=== PATIENT | female | born 2000 | race Two or more races ===

== ENCOUNTER 2024-09-27 10:55 | Outpatient (REF) | payer OTHER, SELFPAY ==
[2024-09-27 12:06] LABS: MANUAL DIFF FLAG NO
[2024-09-27 12:08] LABS: Basophils Percent Auto 0.4 % (0-2); Eosinophils Absolute Auto 0.1 X10*3/uL (0.0-0.4); Eosinophils Percent Auto 0.9 % (0-4); Hematocrit 42.4 % (37.0-47.0); Hemoglobin 14.1 g/dl (12.0-16.0); Imm Gran Abs Auto 0.08 X10*3/uL (0.00-0.03); Imm Gran Pct Auto 0.7 % (0.0-0.4); Lymphocytes Absolute Auto 3.1 X10*3/uL (1.2-4.9); Lymphocytes Percent Auto 27.7 % (20-40); Mean Corpuscular HGB Conc 33.3 g/dl (31.0-35.0); Mean Corpuscular Hemoglobin 30.5 pg (27.0-33.0); Mean Corpuscular Volume 91.6 fL (80.0-98.0); Mean Platelet Volume 9.5 fL (9.4-12.3); Monocytes Absolute Auto 0.6 X10*3/uL (0.1-1.2); Monocytes Percent Auto 5.5 % (2-11); Neutrophils Absolute Auto 7.2 x10*3/uL (2.0-8.3); Neutrophils Percent Auto 64.8 % (45-73); Platelet Count 258 X10*3/uL (160-400); Red Blood Count 4.63 X10*6/uL (4.20-5.50); White Blood Count 11.1 X10*3/uL (4.8-10.8)
[2024-09-27 12:25] LABS: Alanine Aminotransferase 20 U/L (0-31); Albumin Level 4.4 g/dL (3.5-5.0); Alkaline Phosphatase 68 U/L (39-117); Anion Gap 8 (12-20); Aspartate Amino Transferase 18 U/L (5-31); Bilirubin Total 1.2 mg/dL (0.0-1.0); Blood Urea Nitrogen 15 mg/dL (9-16); Calcium 9.7 mg/dL (8.4-10.2); Carbon Dioxide 25 mmol/L (22-29); Chloride 106 mmol/L (96-108); Estimated Glomerular Filt Rate > 60; Glucose Random 121 mg/dL (60-115); Potassium 4.4 mmol/L (3.3-5.1); Sodium 135 mmol/L (135-145); Total Protein 8.4 g/dL (6.5-8.0)
--- OUTSIDE RECORDS SUMMARY | 2024-09-27 12:27 | XMS_ITS | Clinical Summary ---
Author Organization [facility] it Address [address] [place] [address] Care Team Providers Care Staff Forester Name Role Phone Vania Redding MD Primary Care Provider [phone] Surgical History Surgery Date Site/Laterality Comments WISDOM TOOTH EXTRACTION 2015 Bilateral PROCEDURE: HISTORICAL WISDOM TEETH EXTRACTION; COMMENT: bottom molars SECTION 10/12/2017 PROCEDURE: HISTORICAL DELIVERY; COMMENT: Breech OTHER SURGICAL HISTORY PROCEDURE: HISTORICAL D&C; COMMENT: for miscarriage Medical History Medical History Date Comments ADHD (attention deficit hype ractivity disorder) DX:ADHD (attention deficit h yperactivity disorder) Depression DX:Depression Hx of chlamydia infection DX:Hx of chlamydia infection; COMMENT: 04/07/17, 08/2019 Asthma DX:Asthma Nausea and vomiting DX:Nausea an d vomiting Diarrhea DX:Diarrhea Fatty liver DX:Fatty liver Liver lesion DX:Liver lesion Esophageal reflux DX:Esophageal reflux Postprandial epigastric pain DX: Postprandial epigastric pain Epigastric pain DX:Epigastric pa in Family History Medical History Relation Name Comments No Known Problems Brother 1 No Known Problems Brother 2 No Known Problems Brother 3 No Known Problems Father doesn't kn ow his Hx Heart attack Maternal Grandfather No Known Problems Maternal Grandmother Hypertension Mother No Known Problems Sister 1 No Known Problems Sister 2 No Known Problems Son Breast cancer Neg Hx Cervical cancer Neg Hx Colon cancer Neg Hx Ovarian cancer Neg Hx Pancreatic cancer Neg Hx Prostate cancer Neg Hx Uterine cancer Neg Hx Relation Name Status Comments Brother 1 Alive Brother 2 Alive Brother 3 Alive Father Alive Maternal Grandfather Maternal Grandmother Alive Mother Alive Paternal Grandfather unknown to her Alive Paternal Grandmother unknown to her Alive Sister 1 Alive Sister 2 Alive Son Alive 10/12/2017 Social History Tobacco Use Types Packs/Day Years Used Date Smoking Tobacco: Former Cigarettes Q uit: 09/06/2015 Smokeless Tobacco: Never Alcohol Use Standard Drinks/Week Comments Not Currently 0 (1 standard drink = 0.6 oz pur e alcohol) Sex and Gender Information Value Date Recorded Sex Assigned at Not on file Gender Identity Not on file Sexual Orientation Not on file Obstetrics History Last Filed Vital Signs Vital Sign Reading Time Taken Comments Blood Pressure 110/76 05/04/2024 8:21 AM EDT Pulse 72 05/04/2024 8:21 AM EDT Temperature - - Respiratory Rate - - Oxygen Saturation - - Inhaled Oxygen Concentration - - Weight 102 kg (224 lb) 05/04/2024 8:21 AM EDT Height 149.9 cm (4' 11 ) 05/04/2024 8:21 AM EDT Body Mass Index 45.24 05/04/2024 8:21 AM EDT Plan of Treatment Health Maintenance Due Date Last Done Comments Pneumococcal Vaccine: Pediatrics (0 to 5 Years) and At-Risk Patients (6 to 64 Years) (1 of 2 - PCV) 2005 HPV Vaccines (2 - 3-dose series) 01/18/2016 12/21/2015 Hepatitis A Vaccines (1 of 2 - Risk 2-dose series) 2018 Hepatitis B Vaccines (1 of 3 - 19+ 3-dose series) 2018 Depression Screening 08/05/2022 HIV Screening 08/05/2022 Hepatitis C Screening 08/05/2022 Social Influencers of Health Screening 08/05/2022 Cervical Cancer Screening: P ap Smear 02/12/2024 02/11/2021 COVID-19 Vaccine ( - 2023-2 5 season) 2024 Influenza Vaccine (#1) 2024 , 07/02/2017 Cholesterol Screening (Lipid Panel) 05/04/2029 05/04/2024 DTaP,Tdap,and Td Vaccines (3 - Td or Tdap) 05/28/2031 05/28/2021, 08/06/2017 Varicella Vaccines Aged Out 10/13/2017 No longer eligible based on patient's age to complete this topic HIB Vaccines Aged Out No longer eligi ble based on patient's age to complete this topic IPV Vaccines Aged Out No longer eligi ble based on patient's age to complete this topic MMR Vaccines Aged Out No longer eligi ble based on patient's age to complete this topic Meningococcal ACWY Vaccine Aged Out N o longer eligible based on patient's age to complete this topic RSV Immunization Patients Under 20 months Aged Out No longer eligible b ased on patient's age to complete this topic Procedures Procedure Name Priority Date/Time Associated Diagnosis Comments PAP SMEAR Routine 02/11/2021 from Last 3 Months or Most Recently Relevant to Health Maintenance Results * Pap smear (02/11/2021) 02/11/2021 Narrative HISTORICAL TESTING LAB RESULTING AGENCY - 02/18/2021 8:05 AM EDT [id number] THINPREP PAP, IMAGED: NEGATIVE FOR SQUAMOUS INTRAEPITHELIAL LESION AND MALIGNANCY . EVITA MAYER(ASCP) (CASE ELECTRONICALLY SIGNED 02 17 2021) ADEQUACY: SATISFACTORY ENDOCERVICAL/TRANSFORMATION ZONE COMPONENT ABSENT. SOURCE: THINPREP PAP, CERVICAL, IMAGED CLINICAL INFORMATION: THIN PREP PAP, , PAP HX NEG, NO LMP RECORDED [Z12.4, Z34.01] Kemi Landry DO LAB CYTOLOGY ORDERAB LES HISTORICAL TESTING LAB RESULTING AGENCY from Last 3 Months or Most Recently Relevant to Health Maintenance Care Teams Staff Forester Relationship Specialty Start Date End Date Vania Redding MD [address] [place] [address] Dr Mejia, DODIE [address] PCP - General 07/19/23
[2024-09-27 12:44] LABS: Thyroid Stimulating Hormone 1.89 uIU/mL (0.32-4.0)
== END 2024-09-27 10:56 | disposition home or self-care (01) ==
LOC: HO.10HDL 10:55
PROVIDERS: Visit Provider Internal Medicine
DX: Z00.00 Encounter for general adult medical examination without abnormal findings (principal); E66.01 Morbid (severe) obesity due to excess calories; I10 Essential (primary) hypertension; J45.909 Unspecified asthma, uncomplicated
CPT/HCPCS: 36415; 80053; 84443; 85025

== ENCOUNTER 2024-10-11 08:02 | Outpatient (AMB) | payer OTHER, SELFPAY ==
--- OUTSIDE RECORDS SUMMARY | 2024-10-11 08:03 | XMS_ITS | Clinical Summary ---
Author Organization [employer] [facility] Address [address] [place] [address] Care Team Providers Care General Assistant Name Role Phone Vania Redding MD Primary Care Provider [phone] Encounters Date Type Department Care Team Description 10/09/2024 Telephone Gastroenterology - [place] [address] [facility] [address] [place] [address] Bony Dougherty PA from Last 3 Months Surgical History Surgery Date Site/Laterality Comments WISDOM TOOTH EXTRACTION 2016 Bilateral PROCEDURE: HISTORICAL WISDOM TEETH EXTRACTION; COMMENT: [...] RESULTING AGENCY - 02/18/2021 8:05 AM EDT [id number] THINPREP PAP, IMAGED: NEGATIVE FOR SQUAMOUS INTRAEPITHELIAL [...] Recently Relevant to Health Maintenance Care Teams General Assistant Relationship Specialty Start Date End Date Vania Redding MD [address] [place] [address] [place] [address] PCP - General 07/19/23
--- OUTSIDE RECORDS SUMMARY | 2024-10-11 08:03 | XMS_ITS | Encounter Summary ---
Author Organization [employer] Address [address] [place] [address] Care Team Providers Care Aviation Manager Name Role Phone Vania Redding MD Primary Care Provider [phone] Reason for Referral * Imaging (Routine) - Pending Review Specialty Diagnoses / Procedures Referred By Contac t Referred To Contact Radiology Diagnoses Fatty liver Procedures US Abdomen Limited Bony Dougherty PA [address] [place] [address] [facility] Referral ID Status Reason Start Date Expiration Date V isits Requested Visits Authorized [id number] Pending Review 10/09/2024 10/09/2025 1 1 Encounter Details Date Type Department Care Team (Late st Contact Info) Description 10/09/2024 Telephone Gastroenterology - [place] [address] [place] [phone] Bony Dougherty PA [address] [place] [address] Social History Tobacco Use Types Packs/Day Years Used Date Smoking Tobacco: Former Cigarettes Q uit: 09/06/2015 Smokeless Tobacco: Never Alcohol Use Standard Drinks/Week Comments Not Currently 0 (1 standard drink = 0.6 oz pur e alcohol) Sex and Gender Information Value Date Recorded Sex Assigned at Not on file Gender Identity Not on file Sexual Orientation Not on file documented as of this encounter Progress Notes * TANIA Jacobs - 10/09/2024 2:39 PM EST Fatty liver and liver cyst needs labs and ultrasound documented in this encounter Plan of Treatment Scheduled Orders Name Type Priority Associated Diagnoses Orde r Schedule JOSEPH fibrotest liver diease Lab Routine Fatty liver Expected: 10/09/2024, Expires: 10/09/2025 Comprehensive metabolic panel Lab Routine Fatty liver Expected: 10/09/2024, Expires: 10/09/2025 CBC and differential Lab Routine Fatty liver Expected: 10/09/2024, Expires: 10/09/2025 US Abdomen Limited Imaging Routine Fatty liver Expected: 10/09/2024, Expires: 10/09/2025 Lipid panel with reflex to direct LDL Lab Routine Fatty liver Expected: 10/09/2024, Expires: 10/09/2025 documented as of this encounter Visit Diagnoses Diagnosis Fatty liver- Primary Other chronic nonalcoholic liver disease documented in this encounter Care Teams Aviation Manager Relationship Specialty Start Date End Date Vania Redding MD [address] [place] [address] [place] [address] PCP - General 07/19/23 documented as of this encounter
--- NOTE | 2024-10-11 12:24 | MHC.OFFVISWM ---
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: Details: Start time: 12.18pm, End time: 1.03pm ?I spent 40 minutes speaking with the patient on the phone plus an additional 5 minutes reviewing and updating records for a total of 45 minutes HPI Comments Details: Previous weight loss: Ozempic for 1 month (had nausea/vomiting) Wakes up: 8am, Sleeps: 12am Breakfast: skips Lunch: skips Dinner: 7pm (rice, beans, chicken) Snacks: 2 times before dinner (buns, yogurt, fruits), occasionally fruits after dinner Exercise: Has home treadmill Fluids: Coffee: none, tea: none, soda: none, juice: 3/wk (grape and fruit punch), ETOH: none PFSH Medical History (Updated 10/11/24 @ 12:32 by Doe Lawrence MD) Anxiety Acute depression GERD (gastroesophageal reflux disease) Asthma Hypertension Morbid obesity Surgical History (Updated 10/04/24 @ 09:44 by Cintia Zamorano CMA) Hx of wisdom tooth extraction Hx of section Family History (Updated 10/04/24 @ 09:45 by Cintia Zamorano CMA) Mother Hypertension Father No problems noted. Daughter No problems noted. Son No problems noted. Son No problems noted. Social History (Updated 10/04/24 @ 09:45 by Cintia Zamorano CMA) Alcohol intake: current Alcohol intake frequency: holidays/special occasions only Patient Tobacco Use Status: Former Tobacco user Telehealth Telehealth Telehealth Platform: Telephone Location of provider rendering services: practice address Location of patient: address on file Patient Identification confirmed using: Name, : Yes Telehealth method: voice only Patient verbally consented to treatment: Yes Patient verbally consented to billing insurance company: Yes Patient informed of any privacy concerns related to visit: Yes Minutes spent on Phone/Video with Pt.: 45 Assessment & Plan Assessment & Plan (1) Morbid obesity: Code(s): E66.01 - Morbid (severe) obesity due to excess calories Category: Medical Plan: 1.? Plan for lap sleeve gastrectomy. If diaphragmatic or ventral hernias are present at time of surgery, these will be repaired laparoscopically as well. I emphasized the importance of close follow-up, adherence to instructions and good communication. The surgery does not replace the need to change your lifestlyle which is the cause of the obesity problem. The surgery provides the motivation to try again to change your lifestyle, it reduces the appetite and make the transition to a better lifestyle easier and doubles the amount of weight you would lose compared to doing the lifestyle change without the surgery. You will need to be on a liquid diet with protein shakes for 2 weeks before surgery to maximize weight loss and boost your nutritional status to recover better from surgery and also for the first two weeks after surgery to let the stomach heal before we introduce other foods. After the first 2 weeks we will introduce protein bars and soft foods like scrambled eggs, cottage cheese and yogurt and after the 6th week will introduce meat, fish and cooked vegetables in small amounts. Over time you should be able to eat everything in small amounts. Side effects like nausea, vomiting, heartburn or abdominal pain are not common in the practice unless you are not following in the practice. This operation requires lifetime commitment to following in our practice and communication with me. You will much less weight and experience side effects if you don?t communicate or not following in the practice. Complications are rare and in our practice is about 1/10 of the national average. However, you can develop bleeding that may require transfusion (hasn?t happened for year in the practice), you may from complications (we did not have any deaths in the practice) and infections. Infections are usually a result of breakdown in communication or not understanding or following directions correctly. They are difficult to treat, they can happen during the first 6 weeks, they may require to be in the hospital for weeks or even months, not being able to eat by mouth and you may have drains and surgeries to try and correct the issue. Other risks and complications include possible conversion to an open procedure, leaks, small bowel obstruction, blood clots, cardiac, or pulmonary complications, as intermodal dispatcher complications such as ulcers, insufficient weight loss and vitamin deficiencies. 2. You will receive a link of our software raquel to generate an individualized nutritional and exercise plan specific for you. Please send me a screenshot of the plans you will generate Meal to include lean meat (beef, fish, pork, turkey, chicken), or malian yogurt, or egg whites, or beans with a salad with olive oil and fruits (berries, pears, apples, kiwi). Avoid salt, breads, potatoes, rice, pasta, desserts. ?3. If you choose shakes, each shake would be drunk slowly, like coffee in a period of 2 hours. ?4. If you choose bars, cut each bar in 4 pieces and eat each piece in 30min ?to make each bar last 2 hours. ?5. I emphasized the importance of measuring accurately the food portion and measure it when serving the food in plate ?6. The meal portions include a specific number of forks of meat and salad. You always eat the meat portion but you can replace up to half of salad/vegetables portion with rice, potatoes or pasta, or a fruit ?if you like. The less you do it the better weight loss will be. ?7. One full-size fork is what it can be scooped on the fork without falling aside and not what can be bit with the fork. Use regular forks like those you find in a typical restaurant. ?8.? Please buy the body composition scale we discussed and send me weight measurements as soon as possible and then once a week. Always include your diet and exercise plan. 9. The best choice would be to purchase a stationary bike, elliptical or treadmill at home that can track calories. Let me know if you do so I can give you an exercise plan. ?10.?It is important of avoiding and for at least 18 months postoperatively and has been discussed at the infosession. ?11. Goal is to lose at least 1.5-2lbs per week ?12. Goal to lose 10% of your weight before surgery, which is about 22lbs. Ultimate weight goal: 193lbs before surgery 13. Please follow the diet plan exactly without any change. If you don't like something about the plan or you feel hungry you need to communicate with me so I can help you revise the plan. You should not change the plan yourself. 14. To be scheduled for EGD due to the history of sleeve gastrectomy and anemia. The possibility of biopsies was discussed. Patient needs to avoid use of NSAIDs and aspirin for 1 week prior to EGD. You must be on liquids only the day before your endoscopy. Risks of perforation and bleeding was discussed with the patient. This will be an outpatient procedure with IV sedation. Orders: Orders Insulin Today E66.01 - Morbid (severe) obesity due to excess calories, I10 - Essential (primary) hypertension, J45.909 - Unspecified asthma, uncomplicated, K21.9 - Gastro-esophageal reflux disease without esophagitis Complete Blood Count Auto Diff Today E66.01 - Morbid (severe) obesity due to excess calories, I10 - Essential (primary) hypertension, J45.909 - Unspecified asthma, uncomplicated, K21.9 - Gastro-esophageal reflux disease without esophagitis Lipid Panel Today E66.01 - Morbid (severe) obesity due to excess calories, I10 - Essential (primary) hypertension, J45.909 - Unspecified asthma, uncomplicated, K21.9 - Gastro-esophageal reflux disease without esophagitis Comprehensive Met. Panel Today E66.01 - Morbid (severe) obesity due to excess calories, I10 - Essential (primary) hypertension, J45.909 - Unspecified asthma, uncomplicated, K21.9 - Gastro-esophageal reflux disease without esophagitis Zinc Today E66.01 - Morbid (severe) obesity due to excess calories, I10 - Essential (primary) hypertension, J45.909 - Unspecified asthma, uncomplicated, K21.9 - Gastro-esophageal reflux disease without esophagitis C Reactive Protein Today E66.01 - Morbid (severe) obesity due to excess calories, I10 - Essential (primary) hypertension, J45.909 - Unspecified asthma, uncomplicated, K21.9 - Gastro-esophageal reflux disease without esophagitis TSH reflex Free T4 Today E66.01 - Morbid (severe) obesity due to excess calories, I10 - Essential (primary) hypertension, J45.909 - Unspecified asthma, uncomplicated, K21.9 - Gastro-esophageal reflux disease without esophagitis Vitamin D 25-OH Total Today E66.01 - Morbid (severe) obesity due to excess calories, I10 - Essential (primary) hypertension, J45.909 - Unspecified asthma, uncomplicated, K21.9 - Gastro-esophageal reflux disease without esophagitis ECG 12 lead EKG Today E66.01 - Morbid (severe) obesity due to excess calories, I10 - Essential (primary) hypertension, J45.909 - Unspecified asthma, uncomplicated, K21.9 - Gastro-esophageal reflux disease without esophagitis FL upper GI w air Today E66.01 - Morbid (severe) obesity due to excess calories, I10 - Essential (primary) hypertension, J45.909 - Unspecified asthma, uncomplicated, K21.9 - Gastro-esophageal reflux disease without esophagitis Hemoglobin A1c Today E66.01 - Morbid (severe) obesity due to excess calories, I10 - Essential (primary) hypertension, J45.909 - Unspecified asthma, uncomplicated, K21.9 - Gastro-esophageal reflux disease without esophagitis H Pylori Breath Test Today E66.01 - Morbid (severe) obesity due to excess calories, I10 - Essential (primary) hypertension, J45.909 - Unspecified asthma, uncomplicated, K21.9 - Gastro-esophageal reflux disease without esophagitis IRON PROFILE Today E66.01 - Morbid (severe) obesity due to excess calories, I10 - Essential (primary) hypertension, J45.909 - Unspecified asthma, uncomplicated, K21.9 - Gastro-esophageal reflux disease without esophagitis Vitamin B12 and Folate Today E66.01 - Morbid (severe) obesity due to excess calories, I10 - Essential (primary) hypertension, J45.909 - Unspecified asthma, uncomplicated, K21.9 - Gastro-esophageal reflux disease without esophagitis Vitamin B1 Today E66.01 - Morbid (severe) obesity due to excess calories, I10 - Essential (primary) hypertension, J45.909 - Unspecified asthma, uncomplicated, K21.9 - Gastro-esophageal reflux disease without esophagitis Vitamin A Today E66.01 - Morbid (severe) obesity due to excess calories, I10 - Essential (primary) hypertension, J45.909 - Unspecified asthma, uncomplicated, K21.9 - Gastro-esophageal reflux disease without esophagitis Ferritin Today E66.01 - Morbid (severe) obesity due to excess calories, I10 - Essential (primary) hypertension, J45.909 - Unspecified asthma, uncomplicated, K21.9 - Gastro-esophageal reflux disease without esophagitis US abdomen comp w elastography Today E66.01 - Morbid (severe) obesity due to excess calories, I10 - Essential (primary) hypertension, J45.909 - Unspecified asthma, uncomplicated, K21.9 - Gastro-esophageal reflux disease without esophagitis XR chest 2V Today E66.01 - Morbid (severe) obesity due to excess calories, I10 - Essential (primary) hypertension, J45.909 - Unspecified asthma, uncomplicated, K21.9 - Gastro-esophageal reflux disease without esophagitis Referrals Nutrition/Dietitian Referral E66.01 - Morbid (severe) obesity due to excess calories, I10 - Essential (primary) hypertension, J45.909 - Unspecified asthma, uncomplicated, K21.9 - Gastro-esophageal reflux disease without esophagitis Behavioral Health Referral E66.01 - Morbid (severe) obesity due to excess calories, I10 - Essential (primary) hypertension, J45.909 - Unspecified asthma, uncomplicated, K21.9 - Gastro-esophageal reflux disease without esophagitis
[2024-10-11 12:38] VITALS: BMI 43.4
== END 2024-10-11 13:03 | disposition home or self-care (01) ==
LOC: HO.HBS 08:02
PROVIDERS: PCP Internal Medicine; Visit Provider Surgery
DX: E66.01 Morbid (severe) obesity due to excess calories (principal); E66.813 Obesity, class 3; Z68.41 Body mass index [BMI] 40.0-44.9, adult
CPT/HCPCS: 99204

== ENCOUNTER 2024-10-24 11:12 | Outpatient (REF) | payer OTHER, SELFPAY ==
--- NOTE | ~2024-10-24 | XR_ITS ---
CLINICAL HISTORY: E66.01 - Morbid (severe) obesity due to excess calories 2 view chest x-ray Comparison: None Findings: Lungs are clear without acute infiltrates. No pneumothorax. Heart size normal. No acute bony abnormalities. Impression: No acute processes This document has been electronically signed by: Alex Alcantar MD on 10/24/2024 19:02:32
[2024-10-24 11:38] LABS: MANUAL DIFF FLAG NO
[2024-10-24 11:57] LABS: Basophils Percent Auto 0.3 % (0-2); Eosinophils Absolute Auto 0.1 X10*3/uL (0.0-0.4); Eosinophils Percent Auto 1.5 % (0-4); Hematocrit 40.8 % (37.0-47.0); Hemoglobin 13.7 g/dl (12.0-16.0); Imm Gran Abs Auto 0.04 X10*3/uL (0.00-0.03); Imm Gran Pct Auto 0.5 % (0.0-0.4); Lymphocytes Absolute Auto 2.8 X10*3/uL (1.2-4.9); Lymphocytes Percent Auto 32.7 % (20-40); Mean Corpuscular HGB Conc 33.6 g/dl (31.0-35.0); Mean Corpuscular Hemoglobin 30.4 pg (27.0-33.0); Mean Corpuscular Volume 90.7 fL (80.0-98.0); Mean Platelet Volume 9.4 fL (9.4-12.3); Monocytes Absolute Auto 0.5 X10*3/uL (0.1-1.2); Neutrophils Absolute Auto 5.1 x10*3/uL (2.0-8.3); Platelet Count 246 X10*3/uL (160-400); Red Cell Distribution Width 11.9 % (11.0-16.0); White Blood Count 8.6 X10*3/uL (4.8-10.8)
[2024-10-24 12:21] LABS: Estimated Average Glucose 103 mg/dL; Hemoglobin A1C 118.0346 umol/L; Hemoglobin A1c % 5.2 % (<6.0); Total Hemoglobin (HGBA1C) 3597.9121 umol/L
--- OUTSIDE RECORDS SUMMARY | 2024-10-24 12:27 | XMS_ITS | Clinical Summary ---
Author Organization [employer] [facility] Address [address] [place] [address] Care Team Providers Care Machine Greaser Name Role Phone Vania Redding MD Primary Care Provider [phone] Encounters Date Type Department Care Team Description 10/09/2024 Telephone Gastroenterology - [place] [address] [place] [address] Bony Dougherty PA from Last [...] drink = 0.6 oz pur e alcohol) Comments Unknown Sex and Gender Information Value Date Recorded Sex Assigned at Not on file Legal Sex Female 4:31 PM EST Gender Identity Not on file Sexual Orientation [...] Health Maintenance Due Date Last Done Comments HPV Vaccines (2 - 3-dose series) 01/18/2016 12/21/2015 Meningococcal B Vacine (2 of 2 - [place] SCDM 2-dose series) 06/21/2016 12/21/2015 Hepatitis A Vaccines (1 of 2 - Risk 2-dose series) 2018 Hepatitis B Vaccines (1 of 3 - 19+ 3-dose series) 2018 Pneumococcal Vaccine: Pediatrics (0 to 5 Years) and At-Risk Patients (6 to 64 Years) (1 of 2 - PCV) 2018 Depression Screening 08/05/2022 HIV Screening 08/05/2022 Hepatitis C Screening 08/05/2022 Social Influencers of Health Screening 08/05/2022 Cervical Cancer Screening: P ap Smear 02/12/2024 02/11/2021 COVID-19 Vaccine (1 - 2023-2 5 season) 2024 Influenza Vaccine [...] RESULTING AGENCY - 02/18/2021 8:05 AM EDT [id number] THINPREP PAP, IMAGED: NEGATIVE FOR SQUAMOUS INTRAEPITHELIAL LESION AND MALIGNANCY . EVITA MAYER(ASCP) (CASE ELECTRONICALLY SIGNED 02 17 2021) ADEQUACY: SATISFACTORY ENDOCERVICAL/TRANSFORMATION ZONE COMPONENT ABSENT. SOURCE: THINPREP PAP, CERVICAL, IMAGED CLINICAL INFORMATION: THIN PREP PAP, , PAP HX NEG, NO LMP RECORDED [Z12.4, Z34.01] Kemi Landry DO LAB CYTOLOGY ORDERABLES Final Result HISTORICAL TESTING LAB RESULTING AGENCY from Last 3 Months or Most Recently Relevant to Health Maintenance Care Teams Machine Greaser Relationship Specialty Start Date End Date Vania Redding MD [address] [place] [address] Dr Mejia, DODIE [address] PCP - General 07/19/23
--- OUTSIDE RECORDS SUMMARY | 2024-10-24 12:27 | XMS_ITS | Encounter Summary ---
Author Organization [facility] Address [address] [place] [address] Care Team Providers Care Sas Developer Name Role Phone Vania Redding MD Primary Care Provider [phone] Reason for Referral * Imaging (Routine) - Pending Review Specialty Diagnoses / Procedures Referred By Contac t Referred To Contact Radiology Diagnoses Fatty liver Procedures US Abdomen Limited Bony Dougherty PA 175 [facility] [address] [place] [phone] Phone: tel: fax: [facility] Referral ID Status Reason Start Date Expiration Date V isits Requested Visits Authorized [id number] Pending Review 10/09/2024 10/09/2025 1 1 Encounter Details Date Type Department Care Team (Late st Contact Info) Description 10/09/2024 Telephone Gastroenterology - [place] [address] [place] [phone] Bony Dougherty PA 175 [facility] [address] [place] [address] Social History Tobacco Use Types Packs/Day Years [...] as of this encounter Progress Notes * Zulema Lopez MA - 10/11/2024 2:46 PM EST I have contacted patient and left detailed vm making her aware that orders have been placed for herto have blood work done and also that she will be contacted with appointment date and time. * TANIA Jacobs - 10/09/2024 2:39 PM [...] disease documented in this encounter Care Teams Sas Developer Relationship Specialty Start Date End Date Vania Redding MD [address] [place] [address] [place] [id number] PCP - General 07/19/23 documented as of this encounter
[2024-10-24 12:54] LABS: Folate 14.1 ng/mL (> or = 4.0); Vitamin B12 380 pg/mL (200-900)
[2024-10-24 13:21] LABS: Alanine Aminotransferase 23 U/L (0-31); Albumin Level 4.2 g/dL (3.5-5.0); Anion Gap 12 (12-20); Aspartate Amino Transferase 22 U/L (5-31); Bilirubin Total 1.1 mg/dL (0.0-1.0); Blood Urea Nitrogen 17 mg/dL (9-16); Calcium 9.2 mg/dL (8.4-10.2); Carbon Dioxide 23 mmol/L (22-29); Chloride 108 mmol/L (96-108); Cholesterol 141 mg/dL (<200); Estimated Glomerular Filt Rate > 60; Glucose Random 117 mg/dL (60-115); HDL Cholesterol 36 mg/dL (>40); Iron 75 mcg/dL (30-160); LDL Cholesterol Calculated 68 mg/dL (<100); Percent Iron Saturation 25 % (15-50); Sodium 139 mmol/L (135-145); Total Iron Binding Capacity 300 mcg/dL (228-428); Total Protein 8.2 g/dL (6.5-8.0); Triglycerides 185 mg/dL (<150); Unsaturated Iron Binding 225 ug/dL
[2024-10-24 13:32] LABS: Alkaline Phosphatase 65 U/L (39-117)
[2024-10-24 13:39] LABS: Ferritin 63 ng/mL (10-122); Insulin 37 uU/mL (2-29); TSH reflex Free T4 1.31 uIU/mL (0.32-4.0); Vitamin D 25-OH Total 16.9 ng/mL (>30)
[2024-10-26 18:04] LABS: Zinc 90 mcg/dL (60-130)
[2024-10-26 18:32] LABS: Vitamin A 53 mcg/dL (38-98)
[2024-10-29 13:38] LABS: Vitamin B1 13 nmol/L (8-30)
== END 2024-10-24 11:13 | disposition home or self-care (01) ==
LOC: HO.XRAY 11:12
PROVIDERS: PCP Internal Medicine; Visit Provider Surgery
DX: E66.01 Morbid (severe) obesity due to excess calories (principal); K21.9 Gastro-esophageal reflux disease without esophagitis; I10 Essential (primary) hypertension; J45.909 Unspecified asthma, uncomplicated
CPT/HCPCS: 36415; 71046; 80053; 80061; 82306; 82607; 82728; 82746; 83036; 83525; 83540; 84425; 84443; 84590; 84630; 85025; 86140

== ENCOUNTER → 2024-10-24 11:39 | Outpatient (BNV) | payer OTHER, SELFPAY | PROVIDERS: PCP Internal Medicine; Visit Provider Radiology Diagnostic Radiology | DX: J45.909 Unspecified asthma, uncomplicated (principal); K21.9 Gastro-esophageal reflux disease without esophagitis; E66.01 Morbid (severe) obesity due to excess calories | CPT/HCPCS: 71046 ==

== ENCOUNTER → 2024-10-30 11:23 | Outpatient (AMB) | payer OTHER, SELFPAY ==
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
--- OUTSIDE RECORDS SUMMARY | 2024-10-30 13:07 | XMS_ITS | Clinical Summary ---
Author Organization [facility] Address [address] [place] [address] Care Team Providers Care Floorhand Name Role Phone Vania Redding MD Primary Care Provider [phone] Encounters Date Type Department Care Team Description 10/09/2024 Telephone Gastroenterology - [place] [address] [place] [address] Bony Dougherty PA from Last [...] RESULTING AGENCY - 02/18/2021 8:05 AM EDT [id number] THINPREP PAP, IMAGED: NEGATIVE FOR SQUAMOUS INTRAEPITHELIAL [...] Recently Relevant to Health Maintenance Care Teams Floorhand Relationship Specialty Start Date End Date Vania Redding MD [address] [place] [address] Dr Mejia, DODIE [address] PCP - General 07/19/23
--- OUTSIDE RECORDS SUMMARY | 2024-10-30 13:07 | XMS_ITS | Encounter Summary ---
Author Organization [facility] Address [address] [place] [address] Care Team Providers Care Dental Specialist Name Role Phone Vania Redding MD Primary Care Provider [phone] Reason for Referral * Imaging (Routine) - Pending Review Specialty Diagnoses / Procedures Referred By Contac t Referred To Contact Radiology Diagnoses Fatty liver Procedures US Abdomen Limited Bony Dougherty PA 175 [facility] [address] [place] [phone] Phone: tel: fax: [facility] Referral ID Status Reason Start Date Expiration Date V isits Requested Visits Authorized [id number] Pending Review 10/09/2024 10/09/2025 1 1 Encounter Details Date Type Department Care Team (Late st Contact Info) Description 10/09/2024 Telephone Gastroenterology - [place] [address] [place] [phone] Bony Dougherty PA 175 [facility] [address] [place] [address] Social History Tobacco Use Types Packs/Day Years [...] disease documented in this encounter Care Teams Dental Specialist Relationship Specialty Start Date End Date Vania Redding MD [address] [place] [address] [place] [phone] PCP - General 07/19/23 documented as of this encounter
== END ==
PROVIDERS: PCP Internal Medicine; Visit Provider Counselor Mental Health
DX: F39 Unspecified mood [affective] disorder (principal); F43.9 Reaction to severe stress, unspecified
CPT/HCPCS: 90791

== ENCOUNTER 2024-11-09 10:08 | Outpatient (REF) | payer OTHER, SELFPAY ==
--- NOTE | ~2024-11-09 | US_ITS ---
EXAMINATION: US ABDOMEN COMPLETE WITH LIVER ELASTOGRAPHY HISTORY: E66.01 - Morbid (severe) obesity due to excess calories TECHNIQUE: Real-time grayscale ultrasound imaging of the abdomen was performed and images were reviewed. COMPARISON: There are no prior studies for comparison. FINDINGS: Liver: The right lobe of the liver measures 16.2 cm in size. The left lobe of the liver measures 11.3 cm in size. The liver demonstrates increased echotexture, consistent with steatosis. There is a 1.0 x 0.9 x 1.5 cm hypoechoic nodule in the left lobe. There is also a 2.8 x 2.6 x 4.0 cm hypoechoic mass in the left lobe. No intrahepatic biliary ductal dilatation is identified. There is normal hepatopedal flow in the portal vein. Ultrasound elastography of the liver was performed with 10 separate measurements of the liver parenchyma with the patient in the supine position. Measurements were obtained approximately 2 cm below Abelino's capsule and perpendicular to the capsule. Images are of satisfactory quality. The median shear wave velocity is 0.87 m/s. The interquartile range/median (IQR/median) is 0.14. Gallbladder and biliary tree: There is a 4 mm echogenic focus along the gallbladder wall which likely represents a polyp. The gallbladder is otherwise unremarkable, without evidence of calculi, wall thickening, or pericholecystic fluid. There is no sonographic Dobbins sign. The common bile duct is normal in caliber measuring 2 mm. Kidneys: The right kidney measures 12.6 cm in length. The left kidney measures 12.5 cm in length. The kidneys are unremarkable, without evidence of masses, hydronephrosis, or calculi. Pancreas: The pancreatic head, neck, and body are unremarkable. The pancreatic tail is obscured by bowel gas. Spleen: The spleen is enlarged, measuring 15.0 cm in length. Abdominal aorta and inferior vena cava: The visualized portions of the abdominal aorta and inferior vena cava are normal in caliber. There is no free fluid in the abdomen. US/US abdomen comp w elastography IMPRESSION: 1. Hepatosplenomegaly and hepatic steatosis. 2. 2.8 x 2.6 x 4.6 cm hypoechoic mass in the left lobe. Further evaluation with MRI without and with contrast is recommended. The median shear wave velocity in the liver is 0.87 m/s, corresponding to a median liver stiffness of 2.2 kPa. The IQR/median value is 0.14. This is indicative of a quality data set. Findings are indicative of a normal elastography value with a low likelihood of severe fibrosis or cirrhosis. REFERENCE: Society of Radiologists in Ultrasound Liver Stiffness Thresholds (2020): LIVER STIFFNESS THRESHOLDS: *Shear wave velocity less than 1.3 m/s (Liver Stiffness equal or less than 5 kPa): High probability of being normal. *Shear wave velocity less than 1.7 m/s (Liver Stiffness less than 9 kPa): In the absence of other known clinical signs, rules out compensated advanced chronic liver disease. *Shear wave velocity between 1.7-2.1 m/s (Liver Stiffness 9-13 kPa): Suggestive of compensated advanced chronic liver disease but need further test for confirmation. *Shear wave velocity between 2.1-2.4 m/s (Liver Stiffness 13-17 kPa): Rules in compensated advanced chronic liver disease. *Shear wave velocity greater than 2.4 m/s (Liver Stiffness over 17 kPa): Suggestive of clinically significant portal hypertension. QUALITY OF DATA SET: *IQR/Median value equal or less than 0.15 implies a quality data set. *IQR/Median value over 0.15 implies a poor quality data set. SIGNIFICANT CHANGE FROM PRIOR EXAM: Significant change if liver stiffness measurement is 10% or greater from prior exam. OTHER CONSIDERATIONS: The stage of liver fibrosis may be overestimated in the setting of acute hepatitis, liver inflammation, elevated liver function tests, hepatic vascular congestion, obstructive cholestasis, non-fasting state, and infiltrative diseases such as amyloidosis and lymphoma. In some patients with NAFLD, the liver stiffness thresholds for compensated advanced chronic liver disease may be lower. In causes other than viral hepatitis and NAFLD, liver stiffness thresholds are not well established. Electronically signed by: Ata Monte MD 11/10/2024 08:27 AM [facility]
--- OUTSIDE RECORDS SUMMARY | 2024-11-09 11:53 | XMS_ITS | Encounter Summary ---
Author Organization [facility] Address [address] [place] [address] Care Team Providers Care Waxer Operator Name Role Phone Vania Redding MD Primary Care Provider [phone] Reason for Referral * Imaging (Routine) - Pending Review Specialty Diagnoses / Procedures Referred By Contac t Referred To Contact Radiology Diagnoses Fatty liver Procedures US Abdomen Limited Bony Dougherty PA 175 [facility] [address] [place] [address] Phone: tel: fax: [facility] Referral ID Status Reason Start Date Expiration Date V isits Requested Visits Authorized [id number] Pending Review 10/09/2024 10/09/2025 1 1 Encounter Details Date Type Department Care Team (Late st Contact Info) Description 10/09/2024 Telephone Gastroenterology - [place] [address] [place] [phone] Bony Dougherty PA 175 [facility] [address] [place] [address] Social History Tobacco Use Types Packs/Day Years [...] disease documented in this encounter Care Teams Waxer Operator Relationship Specialty Start Date End Date Vania Redding MD [address] [place] [address] [place] [phone] PCP - General 07/19/23 documented as of this encounter
--- OUTSIDE RECORDS SUMMARY | 2024-11-09 11:53 | XMS_ITS | Clinical Summary ---
Author Organization [facility] Address [address] [place] [address] Care Team Providers Care Asset Protection Professional Name Role Phone Vania Redding MD Primary Care Provider [phone] Encounters Date Type Department Care Team Description 10/09/2024 Telephone Gastroenterology - [place] [address] [place] [address] Bony Dougherty PA from Last [...] RESULTING AGENCY - 02/18/2021 8:05 AM EDT [id number] THINPREP PAP, IMAGED: NEGATIVE FOR SQUAMOUS INTRAEPITHELIAL [...] Recently Relevant to Health Maintenance Care Teams Asset Protection Professional Relationship Specialty Start Date End Date Vania Redding MD [address] [place] [address] Dr Mejia, DODIE [address] PCP - General 07/19/23
== END 2024-11-09 10:09 | disposition home or self-care (01) ==
LOC: HO.US 10:08
PROVIDERS: PCP Internal Medicine; Visit Provider Surgery
DX: E66.01 Morbid (severe) obesity due to excess calories (principal); K21.9 Gastro-esophageal reflux disease without esophagitis; I10 Essential (primary) hypertension; J45.909 Unspecified asthma, uncomplicated
CPT/HCPCS: 76700; 76981

== ENCOUNTER → 2024-11-09 10:10 | Outpatient (BNV) | payer OTHER, SELFPAY | PROVIDERS: PCP Internal Medicine; Visit Provider Radiology Diagnostic Radiology | DX: R16.2 Hepatomegaly with splenomegaly, not elsewhere classified (principal); E66.01 Morbid (severe) obesity due to excess calories | CPT/HCPCS: 76700; 76981 ==

== ENCOUNTER 2024-11-13 12:28 | Outpatient (AMB) | payer OTHER, SELFPAY ==
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
--- OUTSIDE RECORDS SUMMARY | 2024-11-13 14:01 | XMS_ITS | Clinical Summary ---
Author Organization [facility] Address [address] [place] [address] Care Team Providers Care Reel Film Inspector Name Role Phone Vania Redding MD Primary Care Provider [phone] Encounters Date Type Department Care Team Description 10/09/2024 Telephone Gastroenterology - [place] [address] [place] [address] Bony Dougherty PA from Last [...] RESULTING AGENCY - 02/18/2021 8:05 AM EDT [id number] THINPREP PAP, IMAGED: NEGATIVE FOR SQUAMOUS INTRAEPITHELIAL [...] Recently Relevant to Health Maintenance Care Teams Reel Film Inspector Relationship Specialty Start Date End Date Vania Redding MD [address] [place] [address] Dr Mejia, DODIE [id number] PCP - General 07/19/23
== END 2024-11-13 13:24 | disposition home or self-care (01) ==
LOC: HO.HBST 12:28
PROVIDERS: PCP Internal Medicine; Visit Provider Counselor Mental Health
DX: F39 Unspecified mood [affective] disorder (principal); F43.9 Reaction to severe stress, unspecified
CPT/HCPCS: 90834

== ENCOUNTER 2024-11-27 11:21 | Outpatient (AMB) | payer OTHER, SELFPAY ==
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
== END 2024-11-27 13:29 | disposition home or self-care (01) ==
LOC: HO.HBST 11:21
PROVIDERS: PCP Internal Medicine; Visit Provider Counselor Mental Health
DX: F39 Unspecified mood [affective] disorder (principal); F43.9 Reaction to severe stress, unspecified
CPT/HCPCS: 90837

== ENCOUNTER → 2024-11-27 11:21 | Outpatient (BNVA) | payer OTHER, SELFPAY | PROVIDERS: PCP Internal Medicine; Visit Provider Counselor Mental Health ==

== ENCOUNTER 2025-07-11 11:11 | Outpatient (REF) | payer OTHER, SELFPAY ==
[2025-07-11 12:18] LABS: Hemoglobin A1C 117.1264 umol/L
[2025-07-11 12:45] LABS: Alanine Aminotransferase 25 U/L (0-31); Albumin Level 4.6 g/dL (3.5-5.0); Alkaline Phosphatase 62 U/L (39-117); Anion Gap 10 (12-20); Aspartate Amino Transferase 25 U/L (5-31); Blood Urea Nitrogen 15 mg/dL (9-16); Calcium 9.0 mg/dL (8.4-10.2); Carbon Dioxide 28 mmol/L (22-29); Chloride 107 mmol/L (96-108); Cholesterol 152 mg/dL (<200); Estimated Glomerular Filt Rate > 60; HDL Cholesterol 43 mg/dL (>40); Potassium 3.5 mmol/L (3.3-5.1); Sodium 141 mmol/L (135-145); Total Protein 7.9 g/dL (6.5-8.0); Triglycerides 117 mg/dL (<150)
[2025-07-11 13:02] LABS: Thyroid Stimulating Hormone 1.17 uIU/mL (0.32-4.0)
--- OUTSIDE RECORDS SUMMARY | 2025-07-11 13:37 | XMS_ITS | Clinical Summary ---
Author Organization [facility] Address [address] [place] [phone] Phone Care Team Providers Care Sewer Repairer Name Role Phone Vania Redding MD Primary Care Provider [phone] Allergies No known active allergies Medications Respiratory Therapy Supplies (YI Aerosol Ogle Enhancer) misc Activ e albuterol HFA (PROVENTIL HFA;VENTOLIN HFA) 108 (90 Base) MCG/ACT inhaler Inhale 2 puffs every 6 (six) hours if needed for wheezing Active metoprolol succinate XL (TOPROL-XL) 100 MG 24 hr tablet Take 100 mg by mouth 1 (one) time each day 04/04/2025 Active Active Problems Problem Noted Date Diagnosed Date Labile hypertension due to being in a clinical e nvironment 05/27/2025 Hypertension 04/10/2025 Encounters Date Type Department Care Team Description 05/28/2025 9:20 AM EDT [facility] Visit [facility] [address] [phone] Harry Russo MD Labile hypertension due to being in a clinical environment (Primary Dx); Hypertension 04/10/2025 9:40 AM EDT Office Visit [facility] [address] [address] Harry Russo MD Hypertension (Primary Dx) from Last 3 Months Family History Medical History Relation Comments Cancer Mother Relation Status Comments Mother Alive Social History Tobacco Use Types Packs/Day Years Used Date Smoking Tobacco: Never Alcohol Use Standard Drinks/Week Comments Never 0 (1 standard drink = 0.6 oz pur e alcohol) Comments Unknown Sex and Gender Information Value Date Recorded Sex Assigned at Not on file Legal Sex Female 11:00 AM EDT Gender Identity Not on file Sexual Orientation Not on file Last Filed Vital Signs Vital Sign Reading Time Taken Comments Blood Pressure 120/80 05/28/2025 9:24 AM EDT Pulse 102 05/28/2025 9:24 AM EDT Temperature - - Respiratory Rate - - Oxygen Saturation 98% 05/28/2025 9:24 AM EDT Inhaled Oxygen Concentration - - Weight 97.1 kg (214 lb) 05/28/2025 9:24 AM EDT Height - - Body Mass Index - - Plan of Treatment Health Maintenance Due Date Last Done Comments Hepatitis B Vaccine (1 of 3 - 19+ 3-dose series) 2018 Influenza Vaccine (#1) 2025 Pneumococcal Vaccine: Peds ( 0 to 5 Years) and At-Risk Patients (6 to 49 Years) Aged Out No longer eligible b ased on patient's age to complete this topic Insurance Medicaid Care Teams Sewer Repairer Relationship Specialty Start Date End Date Vania Redding MD [address] [place] [address] [place] [phone] PCP - General Internal Medicine 04/09/25
--- OUTSIDE RECORDS SUMMARY | 2025-07-11 13:37 | XMS_ITS | Clinical Summary ---
Author Organization [facility] Address [address] [place] [address] Phone Care Team Providers Care Erector Operator Name Role Phone Vania Redding MD Primary Care Provider [phone] Allergies No known active allergies Medications No known medications Encounters Date Type Department Care Team Description 05/15/2025 1:00 PM EDT Office Visit Bariatric Surgery [facility] [address] [facility] [address] [place] [address] Yaneth Modi MD Obesity, Class III, BMI 40-49.9 (morbid obesity) (Primary Dx) from Last 3 Months Surgical History Surgery [...] Sign Reading Time Taken Comments Blood Pressure 129/84 05/15/2025 1:02 PM EDT Pulse 88 05/15/2025 1:02 PM EDT Temperature 36.8 C (98.3 F) 05/15/2025 1:02 PM EDT Respiratory Rate - - Oxygen Saturation - - Inhaled Oxygen Concentration - - Weight 98 kg (216 lb) 05/15/2025 1:02 PM EDT Height 149.9 cm (4' 11 ) 05/15/2025 1:02 PM EDT Body Mass Index 43.63 05/15/2025 1:02 PM EDT Plan of Treatment Upcoming Encounters Date Type Department Care Team (Late st Contact Info) Description 08/20/2025 1:30 PM EST Consult Bariatric Surgery - [place] [address] [facility] [address] [place] [phone] Kemi Nguyen, RD [address] [facility] [address] [place] [address] Health Maintenance Due Date Last Done Comments HPV Vaccines (2 - 3-dose series) 01/18/2016 12/21/2015 Meningococcal B Vaccine (2 o f 2 - [place] SCDM 2-dose series) 06/21/2016 12/21/2015 Hepatitis B Vaccines (1 of 3 - 19+ 3-dose series) 2018 HIV Screening 08/05/2022 Hepatitis C Screening 08/05/2022 Social Influencers of Health Screening 08/05/2022 Cervical Cancer Screening: P ap Smear 02/12/2024 02/11/2021 Depression Screening 09/06/2024 Hypertension/CHF/CAD Annual BMP Blood Test 05/04/2025 05/04/2024 COVID-19 Vaccine (1 - 2023-2 5 season) 2025 Influenza Vaccine (#1) 2025 , 07/02/2017 Cholesterol Screening (Lipid Panel) 05/04/2029 05/04/2024 DTaP,Tdap,and Td Vaccines (4 - Td or Tdap) 11/04/2032 11/04/2022, 05/28/2021, 08/06/2017 RSV Immunization Adult Patients (1 - 1-dose 75+ series) 2074 Varicella Vaccines Aged Out 10/13/2017 No longer eligible based on patient's age to complete this topic HIB Vaccines Aged Out No longer eligi ble based on patient's age to complete this topic Hepatitis A Vaccines Aged Out No long er eligible based on patient's age to complete this topic IPV Vaccines Aged Out No longer eligi ble based on patient's age to complete this topic MMR Vaccines Aged Out No longer eligi ble based on patient's age to complete this topic Meningococcal ACWY Vaccine Aged Out N o longer eligible based on patient's age to complete this topic Pneumococcal Vaccine: Pediatrics (0 to 5 Years) [...] RESULTING AGENCY - 02/18/2021 8:05 AM EDT [id number] THINPREP PAP, IMAGED: NEGATIVE FOR SQUAMOUS INTRAEPITHELIAL LESION AND MALIGNANCY . LIBAN VARGAS , EVITA(ASCP) (CASE ELECTRONICALLY SIGNED 02 17 2021) ADEQUACY: SATISFACTORY ENDOCERVICAL/TRANSFORMATION ZONE COMPONENT ABSENT. SOURCE: THINPREP PAP, CERVICAL, IMAGED CLINICAL INFORMATION: THIN PREP PAP, , PAP HX NEG, NO LMP RECORDED [Z12.4, Z34.01] Kemi Mathissey DO LAB CYTOLOGY ORDERABLES Final Result HISTORICAL TESTING LAB RESULTING AGENCY from Last 3 Months or Most Recently Relevant to Health Maintenance Insurance [facility] Care Teams Erector Operator Relationship Specialty Start Date End Date Vania Redding MD [address] [place] [address] [place] [id number] PCP - General 07/19/23
== END 2025-07-11 11:12 | disposition home or self-care (01) ==
LOC: HO.LAB 11:11
PROVIDERS: PCP Internal Medicine; Visit Provider Internal Medicine
DX: E66.01 Morbid (severe) obesity due to excess calories (principal); F31.5 Bipolar disorder, current episode depressed, severe, with psychotic features; I10 Essential (primary) hypertension; L73.0 Acne keloid
CPT/HCPCS: 36415; 80053; 80061; 83036; 84443